=== PATIENT | male | born 1965 | race Caucasian/White ===

== ENCOUNTER 2020-12-18 09:47 | Outpatient (CLI) | payer BC, SELFPAY ==
--- NOTE | ~2020-12-18 | XR_ITS ---
XR cervical spine 4-5V DATE: 12/18/2020 10:26 INDICATION: Chronic neck pain radiating to right arm. No injury. TECHNIQUE: AP, open-mouth, lateral and swimmer views COMPARISON: None FINDINGS: There is straightening of the cervical spine which may be due to muscle spasm. There is moderate degenerative disc disease and approximately 2.7 mm retrolisthesis at C4-5. There is moderate degenerative disc disease and prominent posterior spurring at C5-6 and C6-7. There is degenerative change at the mid and lower cervical uncovertebral joints, especially on the le ft at C4-5. Degenerative change at the apophyseal joints. C1 and C2 are normally aligned and the odontoid process is intact. No fracture or dislocation or locked facet. No prevertebral soft tissue swelling. Status post sternotomy. Aortic arch calcification. Diffuse osteopenia. IMPRESSION: Straightening of the cervical spine Extensive degenerative changes Reviewed, dictated and finalized at location A. R SOFTENER SERVICE SUPERVISOR
[2020-12-18 10:16] LABS: Basophils Absolute Auto 0.1 K/mm3 (0.0-0.1); Basophils Percent Auto 0.6 % (0.2-1.2); Eosinophils Absolute Auto 0.4 K/mm3 (0-0.3); Eosinophils Percent Auto 4.8 % (0-4.4); Hematocrit 45.7 % (42.0-52.0); Hemoglobin 15.4 g/dL (14.0-18.0); Immature Granulocyte Absolute 0.02 K/mm3 (0.00-0.031); Immature Granulocyte Percent A 0.2 % (0-0.5); Lymphocytes Absolute Auto 2.06 K/mm3 (0.9-3.2); Lymphocytes Percent Auto 23.2 % (18.3-44.2); Mean Corpuscular HGB Conc 33.7 g/dl (32-36); Mean Corpuscular Hemoglobin 31.6 pg (26-34); Mean Corpuscular Volume 93.6 fl (80-100); Mean Platelet Volume 10.7 fl (7.4-10.4); Monocytes Absolute Auto 0.7 K/mm3 (0.1-0.6); Neutrophils Absolute Auto 5.6 K/mm3 (1.3-6.7); Neutrophils Percent Auto 63.2 % (45.5-73.1); Platelet Count Result 240 k/mm3 (150-375); Red Blood Count 4.88 M/mm3 (4.6-6.20); Red Cell Distribution Width 13.2 % (11.5-14.5); White Blood Count 8.9 K/mm3 (4.5-10.0)
[2020-12-18 10:29] LABS: Alanine Aminotransferase 10 U/L (4-50); Albumin Level 4.2 g/dL (3.5-5.1); Alkaline Phosphatase 94 U/L (38-126); Anion Gap 8 mmol/L (8-16); Aspartate Amino Transferase 22 U/L (17-59); Bilirubin,Total 0.6 mg/dL (0.2-1.3); Blood Urea Nitrogen 16 mg/dL (9-20); Calcium 9.4 mg/dL (8.4-10.2); Carbon Dioxide 25 mmol/L (22-30); Chloride 108 mmol/L (98-107); Cholesterol 139 mg/dL (0-200); Estimated Glomerular Filt Rate > 60; Glucose 103 mg/dL (75-110); HDL Direct 36 mg/dL; Magnesium 1.9 mg/dL (1.6-2.3); Potassium 4.7 mmol/L (3.4-5.0); Sodium 141 mmol/L (137-145); Triglycerides 104 mg/dL (<150)
[2020-12-18 10:34] LABS: Hemoglobin A1C 5.4 % (<5.7)
[2020-12-18 10:40] LABS: LDL Cholesterol Direct 79 mg/dL
[2020-12-18 10:59] LABS: Prostate Specific Antigen 0.4 ng/mL (< OR = 4.0)
[2020-12-18 11:34] LABS: Folic Acid 7.2 ng/mL (2.76->20)
[2020-12-18 13:43] LABS: Add Urine Microscopic? NO; Appearance Urine Clear (Clear); Bilirubin Urine Negative (Negative); Blood Urine Negative (Negative); Color Urine Yellow (Yellow); Glucose Urine UA Negative (Negative); Ketones Urine Negative (Negative); Leukocyte Esterase Ur Negative LEU/UL (Negative); Nitrate Urine Negative (Negative); Protein Urine Negative (Negative); Urobilinogen Urine Negative mg/dL (<2.0)
== END 2020-12-18 09:48 | disposition home or self-care (01) ==
PROVIDERS: PCP Family Medicine; Visit Provider Family Medicine
DX: E66.9 Obesity, unspecified (principal); G62.9 Polyneuropathy, unspecified; F17.200 Nicotine dependence, unspecified, uncomplicated; M50.30 Other cervical disc degeneration, unspecified cervical region
CPT/HCPCS: 36415; 72050; 80053; 80061; 81003; 82607; 82746; 83036; 83735; 84153; 84443; 85025; G0103

== ENCOUNTER 2020-12-20 10:08 | Outpatient (CLI) | payer BC, SELFPAY ==
--- NOTE | ~2020-12-20 | CT_ITS ---
EXAMINATION: CT lung screening DATE: 12/20/2020 10:36 INDICATION: Routine dependence TECHNIQUE: Computed tomography (CT) of the chest was performed without intravenous contrast. The dose -length product was 270.72 mGy-cm. Automated exposure control and iterative reconstruction technique were employed. COMPARISON: CT dated 06/27/2019 FINDINGS: No thoracic lymphadenopathy. No significant pleural or pericardial effusion. Heart size is normal. There is atherosclerosis. Status post median sternotomy for CABG. Upper abdomen is unremarkab le. Stable 3 mm right upper lobe nodule, image 46. Calcified granuloma right middle lobe. No new pulm onary nodules or masses. Mild emphysema. There is coronary atherosclerosis. Moderate thoracic spondyl osis. IMPRESSION: 1. Lung-RADS category 2: Benign appearance or behavior. Continue annual screening with noncontrast lo w-dose chest CT in 12 months. Reviewed, dictated and finalized at location A. AND FIXTURE BUILDER IMPRESSION: 1. Lung-RADS category 2: Benign appearance or behavior. Continue annual screeni ng with noncontrast low-dose chest CT in 12 months.
== END 2020-12-20 10:09 | disposition home or self-care (01) ==
PROVIDERS: PCP Family Medicine; Visit Provider Family Medicine
DX: M54.2 Cervicalgia (principal)
CPT/HCPCS: 71271

== ENCOUNTER 2024-03-26 11:28 | Emergency (ER) | payer OTHER, SELFPAY ==
--- NOTE | ~2024-03-26 | XR_ITS ---
EXAMINATION: XR lumbar spine 2-3V DATE: 03/26/2024 12:32 INDICATION: Left back pain and left leg giving out TECHNIQUE: Anteroposterior and lateral views of the lumbar spine, and cone-down lateral view of the l umbosacral junction were obtained. COMPARISON: 05/26/1970 FINDINGS: Mild lower lumbar levocurvature. Sagittal alignment is normal. Unchanged chronic mild anterior wedgin g at L1. Remaining vertebral body heights are normal. Moderate to severe disc height loss at L5-S1. M oderate to severe lower lumbar facet osteoarthritis. Mild bilateral sacroiliac osteoarthritis. Mild t o moderate osteoarthritis at the right hip. Atherosclerotic abdominal aorta. IMPRESSION: 1. Moderate to severe lower lumbar spondylosis. Reviewed, dictated and finalized at location B.
[2024-03-26 11:39] VITALS: BP 131/82; PULSE 98; RESP 18; TEMP 36.7; O2SAT 99
--- NOTE | 2024-03-26 12:31 | PC.NURSE ---
pt returned to room 21 at this time
[2024-03-26] MEDS: KETOROLAC 30 MG/ML VIAL (*BKC) IM (12:33)
--- NOTE | 2024-03-26 12:43 | ED.GENADULT ---
HPI - General Adult General Chief complaint: Extremity Injury, Lower Stated complaint: hip pain Time Seen by Provider: 03/26/24 12:00 History of Present Illness HPI narrative: Patient is a 58-year-old male who presents ER with left-sided low back pain. Ongoing over last 2 weeks. Over the weekend he was moving some dirt in symptoms worsened. It radiates down his left leg. Occasionally his knee will give out. No physical weakness. No numbness or tingling to legs. No difficulty with urination / defecation. No improvement with Tylenol or Relieved. Denies fevers or chills or sweats. 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 Related Data Home Medications Medication Instructions Recorded Confirmed aspirin 81 mg tablet,delayed 81 mg PO DAILY 09/21/19 09/21/19 release (Adult Low Dose Aspirin) atorvastatin 40 mg tablet 40 mg PO DAILY 09/21/19 09/21/19 carvedilol 6.25 mg tablet 6.25 mg PO BID 09/21/19 09/21/19 cilostazol 100 mg tablet 100 mg PO BID 09/21/19 09/26/19 nifedipine 90 mg tablet,extended 90 mg PO DAILY 09/21/19 09/21/19 release 24 hr Allergies Allergy/AdvReac Type Severity Reaction Status Date / Time No Known Allergies Allergy Unknown Verified 03/26/24 11:32 Review of Systems Review of Systems: All systems reviewed & are unremarkable except as noted in HPI and below Constitutional: Constitutional: Reports no additional constitutional complaints ENT: Reports system reviewed and no additional complaints, except as documented Cardiovascular: Cardiovascular: Reports no additional cardiovascular complaints Respiratory: Respiratory: Reports no additional respiratory complaints Musculoskeletal: Musculoskeletal: Reports back pain, Denies arthralgias, Denies joint swelling and Denies muscle cramps Neurologic: Reports system reviewed and no additional complaints, except as documented PMFSH Past Medical History Medical History (Updated 03/26/24 @ 13:29 by Tony Morales MD) Hypertension Myocardial infarct, old Surgical History Surgical History (Updated 09/26/19 @ 09:46 by Stevie Eden MD) S/P CABG x 4 Exam Narrative: GENERAL: Well-appearing, well-nourished, and in no acute distress. HEAD: Normocephalic, atraumatic. ENT: Mucous membranes moist. CHEST: Clear to auscultation. No respiratory distress. HEART: Regular rate and rhythm. Normal peripheral pulses. Back: Number reproducible midline tenderness the T/L-spine. There is left-sided paraspinal muscle tenderness at the region of L3/L4. EXTREMITIES: Normal range of motion. No edema. SKIN: Warm, dry, no rash. NEURO: Alert and oriented x3. PSYCH: Normal mood and affect. Course Course Emergency Course: patient received Toradol. Informed of results. Discharge home with anti-inflammatories muscle relaxers as well as lifting restriction. Patient verbalized understanding. Vital Signs Vital signs: Vital Signs Temperature 98.0 F 03/26/24 11:39 Pulse Rate 98 03/26/24 11:39 Respiratory Rate 18 03/26/24 11:39 Blood Pressure 131/82 03/26/24 11:39 Pulse Oximetry 99 03/26/24 11:39 Temperature 98.0 F 03/26/24 11:39 Pulse Rate 98 03/26/24 11:39 Respiratory Rate 18 03/26/24 11:39 Blood Pressure 131/82 03/26/24 11:39 Pulse Oximetry 99 03/26/24 11:39 Medical Decision Making Vital Signs Vital Signs: Vital Signs Temperature 98.0 F 03/26/24 11:39 Pulse Rate 98 03/26/24 11:39 Respiratory Rate 18 03/26/24 11:39 Blood Pressure 131/82 03/26/24 11:39 Pulse Oximetry 99 03/26/24 11:39 Temperature 98.0 F 03/26/24 11:39 Pulse Rate 98 03/26/24 11:39 Respiratory Rate 18 03/26/24 11:39 Blood Pressure 131/82 03/26/24 11:39 Pulse Oximetry 99 03/26/24 11:39 Imaging Data Radiologist's impression: ITS Impressions Lumbar Spine X-Ray 03/26/24 12:45 IMPRESSION: 1. Moderate to severe lower lumbar spondylosis. Discharge Plan Discharge Clinical Impres
[2024-03-26 13:46] VITALS: PULSE 87; RESP 18; O2SAT 98
== END 2024-03-26 13:47 | disposition home or self-care (01) ==
PROVIDERS: Emergency Provider Emergency Medicine; PCP Family Medicine
DX: M54.42 Lumbago with sciatica, left side (principal); I25.2 Old myocardial infarction; I10 Essential (primary) hypertension; Z95.1 Presence of aortocoronary bypass graft; Z79.82 Long term (current) use of aspirin; M47.816 Spondylosis without myelopathy or radiculopathy, lumbar region
CPT/HCPCS: 72100; 96372; 99283; J1885